=== PATIENT | male | born 1975 | race African-American/Black ===

== ENCOUNTER 2017-05-30 03:49 | Emergency (ER) | payer OTHER ==
[~2017-05-30] VITALS: Ht 182.9 cm; Wt 77.1 kg
[2017-05-30] MEDS ORDERED: IBUPROFEN 200200 M1 PO (04:02)
[2017-05-30] MEDS ORDERED: ACCUNEB SO1.25 MG/1 INH (04:02)
[2017-05-30] MEDS ORDERED: PREDNISONE 20 M20 MG PO (04:25)
[2017-05-30] MEDS ORDERED: TRAMADOL 50 MG50 MG PO (04:25)
[2017-05-30 05:21] VITALS: BP 144/96
== END 2017-05-30 05:25 | disposition home or self-care (01) ==
LOC: ER 03:49
DX: M25.561 Pain in right knee (principal); M54.31 Sciatica, right side; J45.909 Unspecified asthma, uncomplicated; F17.210 Nicotine dependence, cigarettes, uncomplicated; F10.99 Alcohol use, unspecified with unspecified alcohol-induced disorder; Z90.49 Acquired absence of other specified parts of digestive tract